=== PATIENT | male | born 1960 | race Two or more races ===

== ENCOUNTER 2016-12-20 14:52 | Emergency (ER) | payer OTHER ==
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
[2016-12-20] MEDS ORDERED: CRESTOR PO (15:06)
[2016-12-20] MEDS ORDERED: ASPIRIN EC81 M1 PO (15:06)
== END 2016-12-20 17:00 | disposition home or self-care (01) ==
LOC: SED 14:52
DX: S62.610A Displaced fracture of proximal phalanx of right index finger, initial encounter for closed fracture (principal); S62.642A Nondisplaced fracture of proximal phalanx of right middle finger, initial encounter for closed fracture; S61.411A Laceration without foreign body of right hand, initial encounter; Z23 Encounter for immunization; Z79.82 Long term (current) use of aspirin; W22.8XXA Striking against or struck by other objects, initial encounter; Y93.89 Activity, other specified; Y92.69 Other specified industrial and construction area as the place of occurrence of the external cause; Y99.0 Civilian activity done for income or pay
CPT/HCPCS: 29125; 73130; 90471; 90715; 99283